=== PATIENT | male | born 1950 | race Caucasian/White ===

== ENCOUNTER 2019-06-18 08:48 | Emergency (ER) | payer OTHER ==
[~2019-06-18] VITALS: Ht 172.7 cm; Wt 108.4 kg
[2019-06-18 08:58] VITALS: Ht 172.7 cm; Wt 108.4 kg
[2019-06-18 09:52] VITALS: BP 155/79
== END 2019-06-18 09:41 | disposition home or self-care (01) ==
LOC: ED 08:48
DX: S61.412A Laceration without foreign body of left hand, initial encounter (principal); W45.8XXA Other foreign body or object entering through skin, initial encounter; Y93.89 Activity, other specified; Y92.89 Other specified places as the place of occurrence of the external cause; Y99.8 Other external cause status
CPT/HCPCS: J2001